=== PATIENT | male | born 1975 | race Caucasian/White ===

== ENCOUNTER 2021-01-28 19:13 | Emergency (ER) | payer BC, SELFPAY ==
[2021-01-28 19:30] VITALS: BP 163/101; PULSE 63; RESP 16; TEMP 36.2; O2SAT 100
[2021-01-28 21:01] VITALS: BP 152/75; PULSE 65; RESP 14; O2SAT 100
--- NOTE | 2021-01-28 21:01 | PC.NURSE ---
Pt. requesting repeat vitals. states he no longer has a BAIN and thinks bp. has dropped. pt. states since vitals are low he does not want to be seen and will follow up w/ pcp.
== END 2021-01-28 22:14 | disposition left against medical advice (07) ==
LOC: ANHED 22:02
DX: Z53.21 Procedure and treatment not carried out due to patient leaving prior to being seen by health care provider (principal); R51.9 Headache, unspecified
CPT/HCPCS: 99199